=== PATIENT | male | born 1970 | race Two or more races ===

== ENCOUNTER 2018-08-21 09:56 | Outpatient (CLI) | payer OTHER ==
[~2018-08-21] VITALS: Ht 172.7 cm; Wt 83.9 kg
== END 2018-08-21 10:10 | disposition home or self-care (01) ==
LOC: OFIC 805 09:56
DX: J03.80 Acute tonsillitis due to other specified organisms (principal); K21.0 Gastro-esophageal reflux disease with esophagitis; R49.0 Dysphonia

== ENCOUNTER 2018-10-28 11:33 | Outpatient (CLI) | payer OTHER ==
[~2018-10-28] VITALS: Ht 152.4 cm; Wt 83.0 kg
== END 2018-10-28 13:42 | disposition home or self-care (01) ==
LOC: OFIC 805 11:33
DX: J34.2 Deviated nasal septum (principal); J35.1 Hypertrophy of tonsils; K21.9 Gastro-esophageal reflux disease without esophagitis

== ENCOUNTER 2022-10-18 08:04 | Day surgery (SDC) | payer OTHER ==
[2022-10-18] MEDS ORDERED: KETO10TA2 PO (12:05)
[2022-10-18] MEDS ORDERED: MIRALAX17 GM PO (12:05)
[2022-10-18] MEDS ORDERED: TRAMADOL HCL50 MG PO (12:05)
[2022-10-18] MEDS ORDERED: TYLENOL ARTHRI650 MG PO (12:05)
== END 2022-10-18 16:30 | disposition home or self-care (01) ==
LOC: CIR.AMB 08:04
PROVIDERS: ATTEND Surgery
DX: K42.0 Umbilical hernia with obstruction, without gangrene (principal); Z20.822 Contact with and (suspected) exposure to COVID-19
CPT/HCPCS: 49594; C1781